=== PATIENT | female | born 1975 | race African-American/Black ===

== ENCOUNTER 2016-12-29 03:15 | Emergency (ER) | payer OTHER ==
[~2016-12-29 03:15] MED LIST: *DENIES; MOBIC7.5 PO; NICODERM C21 MG/241 TOP
[2016-12-29 04:27] LABS: BASOPHILS 0.2 %; BASOPHILS ABSOLUTE 0.02 10/3/uL (0.0-0.16); EOSINOPHILS 0.3 %; EOSINOPHILS ABSOLUTE 0.03 10/3/uL (0.0-0.53); HEMATOCRIT 38.9 % (36.0-48.0); HEMOGLOBIN 13.6 g/dL (12.0-16.0); IMMATURE GRANULOCYTES 0.2 %; IMMATURE GRANULOCYTES ABSOLUTE 0.02 10/3/uL (0.0-0.11); LYMPHOCYTES 8.8 %; LYMPHOCYTES ABSOLUTE 1.02 10/3/uL (0.67-4.30); MEAN CORPUSCULAR HEMOGLOB 33.2 pg (26.0-34.0); MEAN CORPUSCULAR VOLUME 94.9 fL (80-100); MEAN PLATELET VOLUME 9.9 fL (9.2-13.0); MONOCYTES 3.8 %; MONOCYTES ABSOLUTE 0.44 10/3/uL (0.21-1.20); NEUTROPHILS 86.7 %; NEUTROPHILS ABSOLUTE 10.06 10/3/uL (2.02-8.40); PLATELET COUNT 220 10/3/uL (150-400); RBC DISTRIBUTION WIDTH 12.4 % (12.0-16.0)
[2016-12-29 04:28] LABS: ER CBC TAT 0 Hrs 01 Mins; MANUAL DIFF NO %; WHITE BLOOD CELLS 11.6 10/3/uL (4.5-10.5)
[2016-12-29 04:47] LABS: ALBUMIN 3.7 G/DL (3.5-5.0); ALCOHOL 117 MG/DL (0); ALKALINE PHOSPHATASE 87 U/L (45-117); CALCIUM, SERUM 8.2 MG/DL (8.5-10.4); CHLORIDE, SERUM 111 MMOL/L (96-112); CO2 (CARBON DIOXIDE) 22 MMOL/L (24-34); GFR AFRICAN AMERICAN 105 ML/MIN (>=60); GFR NON AFRICAN AMERICAN 90 ML/MIN (>=60); GLOBULIN 3.8 G/DL (2.5-4.1); GLUCOSE, SERUM 89 MG/DL (60-99); POTASSIUM, SERUM 3.6 MMOL/L (3.5-5.3); SALICYLATE 8.1 MG/DL (-); SGOT(AST) 11 U/L (5-40); SGPT(ALT) 15 U/L (5-65); SODIUM, SERUM 145 MMOL/L (135-148); TOTAL BILIRUBIN 0.6 MG/DL (0-1.2); TOTAL PROTEIN 7.5 G/DL (6.0-8.5)
[2016-12-29 04:48] LABS: BUN (BLOOD UREA NITROGEN) 5 MG/DL (6-23)
[2016-12-29 04:49] LABS: ACETAMINOPHEN LEVEL (TYLENOL) < 2.0 MCG/ML (10.0-20.0)
[2016-12-29 05:16] LABS: AMPHETAMINES (NOT ORD) NEG (NEG); BARBITURATES (NOT ORDERED NEG (NEG); BENZODIAZEPINES (NOT ORD) NEG (NEG); CANNABINOIDS (THC) POS (NEG); COCAINE (NOT ORDERED) POS (NEG); OPIATES NEG (NEG); PHENCYCLIDINE(PCP) NEG (NEG); TRICYCLICS NEG (NEG)
[2016-12-29 07:11] LABS: CHLAMYDIA TRACH PCR NOT DETECTED (NOT DETEC); GC PCR NOT DETECTED (NOT DETECT); SOURCE: FEMALE URINE
== END 2016-12-29 05:35 | disposition home or self-care (01) ==
LOC: ER 03:15
PROVIDERS: Nurse Practitioner
DX: F19.10 Other psychoactive substance abuse, uncomplicated (principal); F17.200 Nicotine dependence, unspecified, uncomplicated; Z90.710 Acquired absence of both cervix and uterus; Z79.899 Other long term (current) drug therapy
CPT/HCPCS: 80053; 80305; 80307; 85025; 87491; 87591; 99283